=== PATIENT | female | born 1950 | race Caucasian/White ===

== ENCOUNTER 2016-12-08 14:19 | Outpatient (CLI) | payer MEDICARE, BC ==
--- NOTE | 2016-12-08 16:23 | XRAY Report ---
THREE VIEW RIGHT SHOULDER: 12/08/2016 CLINICAL INDICATION: Right shoulder pain. FINDINGS: AP, oblique, and scapular Y views of the right shoulder demonstrate degenerative changes o f the acromioclavicular and glenohumeral joints. There is no evidence of acute fracture or dislocatio n. Spinal fusion hardware is noted in the lower cervical spine. No radiopaque foreign body is seen in the soft tissues. IMPRESSION: OSTEOARTHRITIS. JOB #: [id number] EXT JOB #:[id number]
== END 2016-12-08 14:20 | disposition home or self-care (01) ==
LOC: DI.S 14:19
PROVIDERS: ATTEND Nurse Practitioner Family
DX: M19.011 Primary osteoarthritis, right shoulder (principal)

== ENCOUNTER 2017-03-17 18:20 | Outpatient (CLI) | payer MEDICARE, BC ==
--- NOTE | 2017-03-18 09:21 | XRAY Report ---
THREE-VIEW LEFT KNEE: 03/17/2017 CLINICAL INDICATION: Severe pain. FINDINGS: AP, lateral, sunrise views of the left knee demonstrate no evidence of fracture or disloca tion. The joint spaces are preserved. No effusion is present. No foreign body is seen in the soft tissues. IMPRESSION: NORMAL LEFT KNEE. JOB #: [id number] EXT JOB #:[id number]
== END 2017-03-17 18:21 | disposition home or self-care (01) ==
LOC: DI 18:20
PROVIDERS: ATTEND Nurse Practitioner Family
DX: M25.562 Pain in left knee (principal)

== ENCOUNTER 2018-06-18 09:51 | Outpatient (CLI) | payer MEDICARE, BC ==
--- NOTE | 2018-06-18 11:39 | XRAY Report ---
Reason: UNSPECIFIED INFLAMMATORY SPONDYLOPATHY,CERVICAL RE Procedure Date: 06/18/2018 Accession Number: [id number] / [id number] Procedure: XR - Cervical Spine Complete CPT Code: FULL RESULT: EXAM: CERVICAL SPINE RADIOGRAPHY EXAM DATE: 06/18/2018 10:14 AM. CLINICAL HISTORY: UNSPECIFIED INFLAMMATORY SPONDYLOPATHY, neck pain. History of surgery. COMPARISONS: None. TECHNIQUE: 5 views. FINDINGS: Alignment: Minimal retrolisthesis C4 with respect to C5. Bones: The cervical vertebral bodies and posterior elements are well-seen from the skull base through C7-T1. No fractures or bone lesions. Disks: Advanced degenerative disk space narrowing C4-C5. Status post anterior interbody solid-appearing C5-C6 and C6-C7 with plate and screw stabilization. Facets: Mild degenerative disease. Neural Foramina: The neural foramina views are suboptimal but encroachment at C5-C6 and C6-C7 bilaterally is suspected. Soft Tissues: No prevertebral soft tissue swelling. IMPRESSION: Status post solid-appearing C5-C7 fusion advanced C4-C5 degenerative change. RADIA
== END 2018-06-18 09:52 | disposition home or self-care (01) ==
LOC: DI 09:51
PROVIDERS: ATTEND Internal Medicine
DX: M50.321 Other cervical disc degeneration at C4-C5 level (principal); M47.9 Spondylosis, unspecified; Z98.1 Arthrodesis status
CPT/HCPCS: 72050

== ENCOUNTER 2018-09-16 10:57 | Outpatient (CLI) | payer MEDICARE, BC ==
[2018-09-16 11:12] LABS: BASOPHILS % (AUTO) 0.4 %; EOSINOPHILS # (AUTO) 0.1 10^3/uL (0.0-0.7); EOSINOPHILS % (AUTO) 0.9 %; HGB - HEMOGLOBIN 13.1 g/dL (12.0-16.0); LYMPHOCYTES # (AUTO) 0.8 10^3/uL (1.5-3.5); LYMPHOCYTES % (AUTO) 10.9 %; MEAN CORPUSCULAR HEMOGLOBIN 27.4 pg (27.0-31.0); MEAN CORPUSCULAR VOLUME 83.1 fL (81.0-99.0); MEAN PLATELET VOLUME 7.4 fL (7.9-10.8); MONOCYTES # (AUTO) 0.8 10^3/uL (0.0-1.0); MONOCYTES % (AUTO) 10.1 %; NEUTROPHILS # (AUTO) 5.9 10^3/uL (1.5-6.6); NEUTROPHILS % (AUTO) 77.7 %; PLT - PLATELET COUNT 236 10^3/uL (130-450); RED BLOOD COUNT 4.76 10^6/uL (4.20-5.40); RED CELL DISTRIBUTION WIDTH 13.5 % (12.0-15.0); WHITE BLOOD COUNT 7.6 x10^3/uL (4.8-10.8)
[2018-09-16 11:24] LABS: ALBUMIN 4.3 g/dL (3.2-5.5); ALBUMIN/GLOBULIN RATIO 1.6 (1.0-2.2); BILIRUBIN,TOTAL 0.7 mg/dL (0.2-1.0); CALCIUM 9.4 mg/dL (8.5-10.3)
== END 2018-09-16 10:58 | disposition home or self-care (01) ==
LOC: LAB 10:57
PROVIDERS: ATTEND Orthopaedic Surgery
DX: Z01.810 Encounter for preprocedural cardiovascular examination (principal); Z01.812 Encounter for preprocedural laboratory examination
CPT/HCPCS: 36415; 80053; 85025

== ENCOUNTER 2019-06-23 14:15 | Emergency (ER) | payer MEDICARE, BC ==
[2019-06-23 15:28] LABS: BASOPHILS # (AUTO) 0.1 10^3/uL (0.0-0.1); BASOPHILS % (AUTO) 0.4 %; EOSINOPHILS % (AUTO) 0.2 %; HGB - HEMOGLOBIN 11.5 g/dL (12.0-16.0); LYMPHOCYTES # (AUTO) 0.3 10^3/uL (1.5-3.5); LYMPHOCYTES % (AUTO) 2.2 %; MEAN CORPUSCULAR HGB CONC 33.1 g/dL (32.0-36.0); MEAN CORPUSCULAR VOLUME 84.6 fL (81.0-99.0); MEAN PLATELET VOLUME 9.4 fL (7.9-10.8); MONOCYTES # (AUTO) 0.6 10^3/uL (0.0-1.0); MONOCYTES % (AUTO) 4.6 %; NEUTROPHILS # (AUTO) 11.2 10^3/uL (1.5-6.6); PLT - PLATELET COUNT 197 10^3/uL (130-450); RED CELL DISTRIBUTION WIDTH 12.1 % (12.0-15.0); WHITE BLOOD COUNT 12.2 x10^3/uL (4.8-10.8)
[2019-06-23 15:41] LABS: ALBUMIN 4.1 g/dL (3.2-5.5); ALBUMIN/GLOBULIN RATIO 1.4 (1.0-2.2); BILIRUBIN,TOTAL 1.1 mg/dL (0.2-1.0); CALCIUM 9.3 mg/dL (8.5-10.3); CREATININE 0.9 mg/dL (0.4-1.0); TOTAL PROTEIN 7.1 g/dL (6.7-8.2)
[2019-06-23] MEDS ORDERED: ACETAMINOPHEN 325 MG TABLET PO STA (16:01)
--- NOTE | 2019-06-23 16:05 | ED Physician Documentation ---
History of Present Illness - Stated complaint Stated Complaint: RADHA - Chief complaint Chief Complaint: General - History obtained from History obtained from: Patient, Family - History of Present Illness Timing: How many days ago (2) - Additonal information Additional information: Patient comes emergency department complaining of not feeling well for the last couple of days. She states that 4 days ago, she got a shingles vaccine, and that the next day, she began to feel "off". She states that the day after that, she had very severe body aches and spent the entire day laying down. The body aches continued yesterday and today, the patient states she began to feel quite chilled. She states she was shaking so hard that she could not stand up and a friend had to help her stand. She states that she did not measure her temperature, so she is not sure she had a fever. She denies any dysuria. No cough. No sore throat or rhinorrhea. No abdominal pain, chest pain, nausea, vomiting, diarrhea, or constipation. Patient states that she is fairly healthy, though she does take medication for hypertension, depression, and hyperlipidemia. She denies any specific sick contacts. No other complaints at this time. She states she did begin to feel better after she got in the car and covered up with some warm clothing.Patient denies feeling dizzy or lightheaded. She denies any focal weakness in her arms or legs. Review of Systems Ten Systems: 10 systems reviewed and negative Constitutional: reports: Chills, Myalgias Eyes: reports: Reviewed and negative Ears: reports: Reviewed and negative Nose: reports: Reviewed and negative Throat: reports: Reviewed and negative Cardiac: reports: Reviewed and negative Respiratory: reports: Reviewed and negative GI: reports: Reviewed and negative : reports: Reviewed and negative Skin: reports: Reviewed and negative Musculoskeletal: reports: Reviewed and negative Neurologic: reports: Reviewed and negative Psychiatric: reports: Reviewed and negative Endocrine: reports: Reviewed and negative Immunocompromised: reports: Reviewed and negative PD PAST MEDICAL HISTORY - Past Medical History Cardiovascular: Hypertension, High cholesterol, Arrhythmia Respiratory: Asthma Endocrine/Autoimmune: None GI: None, Other : None HEENT: None Psych: Depression Musculoskeletal: Osteoarthritis Derm: None - Past Surgical History Past Surgical History: Yes General: Cholecystectomy, Colonoscopy Ortho: Carpal Tunnel surgery, Spine surgery /REGISTERED ART THERAPIST: Tubal ligation, Other - Present Medications Home Medications: Ambulatory Orders Medication Instructions Recorded Confirmed Aspirin [Aspir 81] 81 mg PO DAILY 08/17/13 11/24/13 Bupropion HCl [Wellbutrin Xl] 300 mg PO DAILY 08/17/13 11/24/13 Multivitamin [Daily Gi] 1 each PO DAILY 08/17/13 11/24/13 Simvastatin 20 mg PO DAILY 08/17/13 11/24/13 hydroCHLOROthiazide [Hydrodiuril] 25 mg PO DAILY 08/17/13 11/24/13 traZODone [Desyrel] 100 mg PO HS 08/17/13 11/24/13 Hydrocodone/Acetaminophen 1 each PO DAILY PRN 11/24/13 11/24/13 [Hydrocodone-APAP 5-325] Losartan [Cozaar] 50 mg PO DAILY 11/24/13 11/24/13 predniSONE [Deltasone] 20 mg PO [id number] #21 tab 11/27/14 Ciprofloxacin HCl [Cipro] 500 mg PO BID #14 tablet 06/23/19 - Allergies Allergies/Adverse Reactions: Allergies Allergy/AdvReac Type Severity Reaction Status Date / Time Sulfa (Sulfonamide Allergy Unknown Verified 06/23/19 14:26 Antibiotics) - Social History Does the pt smoke?: No Smoking Status: Former smoker Does the pt drink ETOH?: Yes Does the pt have substance abuse?: No - Immunizations Immunizations are current?: No Immunizations: TDAP >10years/unknown - POLST Patient has POLST: No PD ED PE NORMAL - Vitals Vital signs reviewed: Yes - General General: Alert and oriented X 3, No acute distress - HEENT HEENT: PERRL - Neck Neck: Supple, no meningeal sign - Cardiac Cardiac: RRR, No murmur - Respiratory Respiratory: Clear bilaterally - Abdomen Abdomen: Soft, Non tender, Non distended - Derm Derm: Warm and dry - Extremities Extremities: No deformity - Neuro Neuro: Alert and oriented X 3 - Psych Psych: Normal mood, Normal affect Results - Vitals Vitals: Vital Signs - 24 hr 06/23/19 06/23/19 06/23/19 14:21 16:39 17:32 Temperature 36.9 C 37.7 C H Heart Rate 90 73 81 Respiratory 20 20 16 Rate Blood Pressure 132/67 H 143/69 H 121/57 L O2 Saturation 100 98 96 06/23/19 17:34 Temperature 37.5 C Heart Rate Respiratory Rate Blood Pressure O2 Saturation Oxygen O2 Source Room air - Labs Labs: Laboratory Tests 06/23/19 06/23/19 06/23/19 15:19 15:19 15:19 WBC 12.2 H RBC 4.10 L Hgb 11.5 L Hct 34.7 L MCV 84.6 MCH 28.0 MCHC 33.1 RDW 12.1 Plt Count 197 MPV 9.4 Neut # (Auto) 11.2 H Lymph # (Auto) 0.3 L [place] # (Auto) 0.6 Eos # (Auto) 0.0 Baso # (Auto) 0.1 Absolute Nucleated RBC 0.00 Nucleated RBC % 0.0 Sodium 133 L Potassium 3.3 L Chloride 97 L Carbon Dioxide 26 Anion Gap 10.0 BUN 25 H Creatinine 0.9 Estimated GFR (MDRD) 62 L Glucose 123 H Lactic Acid 1.2 Calcium 9.3 Total Bilirubin 1.1 H AST 18 ALT 18 Alkaline Phosphatase 58 Troponin I High Sens Total Protein 7.1 Albumin 4.1 Globulin 3.0 Albumin/Globulin Ratio 1.4 Lipase 22 Urine Color Urine Clarity Urine pH Ur Specific Waite Urine Protein Urine Glucose (UA) Urine Ketones Urine Occult Blood Urine Nitrite Urine Bilirubin Urine Urobilinogen Ur Leukocyte Esterase Urine RBC Urine WBC Ur Squamous Epith Cells Amorphous Sediment Urine Bacteria Urine Culture Comments Influenza A (Rapid) Influenza B (Rapid) 06/23/19 06/23/19 06/23/19 15:19 15:55 15:55 WBC RBC Hgb Hct MCV MCH MCHC RDW Plt Count MPV Neut # (Auto) Lymph # (Auto) [place] # (Auto) Eos # (Auto) Baso # (Auto) Absolute Nucleated RBC Nucleated RBC % Sodium Potassium Chloride Carbon Dioxide Anion Gap BUN Creatinine Estimated GFR (MDRD) Glucose Lactic Acid Calcium Total Bilirubin AST ALT Alkaline Phosphatase Troponin I High Sens 7.4 Total Protein Albumin Globulin Albumin/Globulin Ratio Lipase Urine Color DARK YELLOW Urine Clarity CLEAR Urine pH 6.0 Ur Specific [place] 1.020 Urine Protein TRACE Urine Glucose (UA) NEGATIVE Urine Ketones TRACE Urine Occult Blood NEGATIVE Urine Nitrite POSITIVE H Urine Bilirubin NEGATIVE Urine Urobilinogen 0.2 (NORMAL) Ur Leukocyte Esterase SMALL H Urine RBC 0-5 Urine WBC >25 H Ur Squamous Epith Cells FEW Squamous Amorphous Sediment Few Urine Bacteria Many H Urine Culture Comments INDICATED Influenza A (Rapid) Negative Influenza B (Rapid) Negative - Rads (name of study) Chest x-ray Radiology: Discussed with rads, See rad report (Mild left upper lobe bronchial thickening and patchy left basilar opacity findings which may represent early multifocal consolidation. ) PD MEDICAL DECISION MAKING - ED course Complexity details: reviewed old records, reviewed results, re-evaluated patient, considered differential, d/w patient, d/w family ED course: Patient was worked up with labs, including troponin, chest x-ray, urinalysis, and influenza swab, and was treated with a liter of 0.9 normal saline and with Tylenol.Work-up did reveal a urinary tract infection, which was not surprising, given the patient's constellation of symptoms. She was started on antibiotics in the emergency department and also given a prescription for antibiotics to take at home. Her chest x-ray showed some mild bronchial thickening which wasNonspecific, given the patient's lack of symptoms. However, the antibiotics upon which she has been started for her urinary tract infection will cover any potential respiratory bereket, as well. We have discussed home management of her symptoms as well as the usual indications for return. Departure - Departure Disposition: Home, Self Care Clinical Impression: UTI (urinary tract infection) Qualifiers: Urinary tract infection type: acute cystitis Hematuria presence: without hematuria Qualified Code(s): N30.00 - Acute cystitis without hematuria Condition: Good Instructions: ED UTI Cystitis Female Prescriptions: Ciprofloxacin HCl [Cipro] 500 mg PO BID #14 tablet Comments: Your labs look good overall. Your urinalysis is positive for infection, which is not surprising, given your symptoms.You have been started on antibiotics in the emergency department and will need to continue your antibiotics for the rest of the week. Discharge Date/Time: 06/23/19 17:59
[2019-06-23 16:18] LABS: BILIRUBIN,URINE NEGATIVE (NEGATIVE); GLUCOSE, URINE (UA) NEGATIVE (NEGATIVE); KETONES,URINE (UA) TRACE mg/dL (NEGATIVE); LEUKOCYTE ESTERASE, URINE SMALL (NEGATIVE); NITRITE,URINE POSITIVE (NEGATIVE); OCCULT BLOOD,URINE NEGATIVE (NEGATIVE); PROTEIN,URINE TRACE mg/dL (NEGATIVE); UROBILINOGEN,URINE 0.2 (NORMAL) E.U./dL (NORMAL)
[2019-06-23 16:27] LABS: AMORPHOUS SEDIMENT,UR Few /LPF; BACTERIA,URINE Many /HPF (None Seen); CLARITY,URINE CLEAR (CLEAR); RBC,URINE 0-5 /HPF (0-5); SQUAMOUS EPITHELIAL CELL,UR FEW Squamous (<= Few)
--- NOTE | 2019-06-23 16:47 | XRAY Report ---
Reason: chills, body aches, feeling unwell Procedure Date: 06/23/2019 Accession Number: [id number] / [id number] Procedure: XR - Chest 2 View X-Ray CPT Code: 23427 Final Report FULL RESULT: EXAM: CHEST RADIOGRAPHY EXAM DATE: 06/23/2019 04:27 PM. CLINICAL HISTORY: Chills, body aches, feeling unwell. COMPARISON: XR CHEST PA AND LAT 02/18/2010 10:13 AM. TECHNIQUE: 2 views. FINDINGS: Lungs/Pleura: Patchy left lower lobe opacity. Mild bronchial thickening left upper lobe. Linear basilar scar/atelectasis. No vascular congestion. No pneumothorax. Mediastinum: Heart size upper normal. Mediastinal contour stable. Other: Degenerative changes of the thoracic spine. Changes again seen from inferior cervical fusion. Degenerative changes of the thoracic spine. Status post cholecystectomy. IMPRESSION: 1. Mild left upper lobe bronchial thickening and patchy left basilar opacity findings which may represent early multifocal consolidation. RADIA
[2019-06-23] MEDS ORDERED: CIPROFLOXACIN 250 MG TABLET PO STA (17:11)
[2019-06-23 17:33] VITALS: BP 121/57
== END 2019-06-23 17:59 | disposition home or self-care (01) ==
LOC: ED 14:15
DX: N30.00 Acute cystitis without hematuria (principal); I10 Essential (primary) hypertension; Z87.891 Personal history of nicotine dependence
CPT/HCPCS: 36415; 71046; 80053; 81001; 83605; 83690; 84484; 85025; 87077; 87086; 87181; 87275; 87276; 99284; A9270

== ENCOUNTER 2022-05-06 13:36 | Outpatient (CLI) | payer MEDICARE, BC ==
--- NOTE | 2022-05-06 14:27 | XRAY Report ---
PROCEDURE: Chest 2 View X-Ray INDICATIONS: COUGH TECHNIQUE: 2 views of the chest were acquired. COMPARISON: Chest x-ray 02/18/2010 FINDINGS: Surgical changes and devices: Cervical fixation plates are noted. Lungs and pleura: No pleural effusions or pneumothorax. Lungs are clear. Mediastinum: Mediastinal contours are normal. Heart size is normal. Bones and chest wall: No suspicious bony abnormalities. Soft tissues appear unremarkable. IMPRESSION: No acute pulmonary process. Reviewed by: Giselle Gómez MD on 05/06/2022 2:26 PM PST Approved by: Giselle Gómez MD on 05/06/2022 2:26 PM [facility] Station ID: [id number]
== END 2022-05-06 13:37 | disposition home or self-care (01) ==
LOC: DI.S 13:36
PROVIDERS: ATTEND Nurse Practitioner Family
DX: R05.9 Cough, unspecified (principal)

== ENCOUNTER 2023-09-01 11:27 | Outpatient (CLI) | payer MEDICARE, BC ==
--- NOTE | 2023-09-02 08:25 | XRAY Report ---
PROCEDURE: Lumbar Spine 2-3V INDICATIONS: PAIN IN THORACIC SPINE TECHNIQUE: 3 views of the lumbar spine were acquired. COMPARISON: None. FINDINGS: Bones: 5 [id number]-kwt-[id number] vertebrae are present. There is normal bony alignment. No vertebral body compression fractures. No suspicious bony lesions. Multilevel degenerative disc disease, moderate a t L2-L3, mild at other levels. Moderate facet arthropathy at L3-L4, L5 L5 and L5-S1. Soft tissues: Overlying bowel gas pattern is normal. Vascular calcifications consistent with atheros clerosis. IMPRESSION: 1. Degenerative disc and facet disease as described. Reviewed by: Marciano Hernandez MD on 09/02/2023 8:23 AM PDT Approved by: Marciano Hernandez MD on 09/02/2023 8:23 AM PDT Station ID: [id number]
== END 2023-09-01 11:28 | disposition home or self-care (01) ==
LOC: DI.S 11:27
PROVIDERS: ATTEND Registered Nurse
DX: M47.816 Spondylosis without myelopathy or radiculopathy, lumbar region (principal); M47.817 Spondylosis without myelopathy or radiculopathy, lumbosacral region; M51.36 Other intervertebral disc degeneration, lumbar region; M51.37 Other intervertebral disc degeneration, lumbosacral region

== ENCOUNTER 2023-12-18 10:38 | Outpatient (CLI) | payer MEDICARE, BC ==
--- NOTE | 2023-12-20 15:12 | DEXA Report ---
PROCEDURE: Dexa Spine and/or Hip INDICATIONS: POST MENOPAUSAL TECHNIQUE: Dual energy x-ray absorptiometry (DXA) was performed on a Celect System. Regions measur ed are the AP Spine, femoral neck, and if needed forearm. COMPARISON: None FINDINGS: Lumbar Spine: Bone Mineral Density: 1.385 g/cm/cm,T score: 1.7. Left Femoral Neck: Bone Mineral Density: 0.908 g/cm/cm, T score: -0.9. Left Hip: Bone Mineral Density: 0.972 g/cm/cm,T score: -0.3. FRAX risk factors: None given. (T score greater or equal to -1.0: NORMAL) (T score from -1.1 to -2.4: OSTEOPENIA) (T score less than or equal to -2.5 to: OSTEOPOROSIS) Impression: By WHO criteria, this patient has normal bone density. Patients with diagnosis of osteoporosis or osteopenia should have regular bone mineral density assess ment. For those eligible for Medicare, routine testing is allowed once every 2 years. Testing frequ ency can be increased for patients who have rapidly progressing disease or for those who are receivin g medical therapy to restore bone mass. Reviewed by: Dameon Trent MD on 12/20/2023 3:10 PM PDT Approved by: Dameon Trent MD on 12/20/2023 3:10 PM PDT Station ID: [id number]
== END 2023-12-18 10:39 | disposition home or self-care (01) ==
LOC: DI 10:38
PROVIDERS: ATTEND Registered Nurse
DX: Z78.0 Asymptomatic menopausal state (principal)

== ENCOUNTER 2023-12-18 10:38 | Outpatient (CLI) | payer MEDICARE, BC ==
--- NOTE | 2023-12-19 11:26 | CT Report ---
PROCEDURE: Lung Cancer Screen INDICATIONS: FORMER SMOKER TECHNIQUE: A CT scan of the chest was performed. Intravenous contrast media was not administered. Images were re corded and evaluated at appropriate window settings. Reformats: axial MIP of the chest, coronal and s agittal. For radiation dose reduction, the following was used: automated exposure control, adjustment of mA and/or kV according to patient size. COMPARISON: Correlation is made with overlapping portions of CT, 03/23/2015 FINDINGS: Image quality: Excellent. Prior cancer history: None given. Lungs and pleura: Within the right upper lobe, there is a 3 to 4 mm nodule seen, as on series 3 image 49. No pleural effusions. No pneumothorax. Mediastinum: Heart size is normal. No pericardial effusion. No large vessel abnormality. No mediastin al adenopathy by size criteria. Chest wall and lower neck: Thyroid is unremarkable. No axillary or supraclavicular adenopathy by size . Bones: No aggressive osseous abnormality. Lower cervical spine fixation hardware can be seen. Mild pe ctus excavatum deformity can be seen. Age-appropriate degenerative changes are seen. There is accent uated thoracic kyphosis. Upper Abdomen: Cholecystectomy clips are seen. IMPRESSION: There is a 3 to 4 mm right upper lobe pulmonary nodule seen. Lung RAD: 2 - Benign. Recommendation: Recommend annual low-dose CT chest screening examinations, as long as the patient ashutosh ts the published screening criteria. Additional findings: Lower cervical spine fixation hardware Mild pectus excavatum deformity Cholecystectomy Reviewed by: Maicol Sahu MD on 12/19/2023 10:24 AM [facility] Approved by: Maicol Sahu MD on 12/19/2023 10:24 AM [facility] Station ID: [id number]
== END 2023-12-18 10:39 | disposition home or self-care (01) ==
LOC: DI 10:38
PROVIDERS: ATTEND Registered Nurse
DX: Z12.2 Encounter for screening for malignant neoplasm of respiratory organs (principal); R91.1 Solitary pulmonary nodule; Z87.891 Personal history of nicotine dependence; Z78.0 Asymptomatic menopausal state

== ENCOUNTER 2023-12-24 16:00 | Outpatient (CLI) | payer MEDICARE, OTHER ==
--- NOTE | 2023-12-25 09:41 | Ultrasound Report ---
PROCEDURE: Pelvic w/Transvaginal INDICATIONS: POST MENOPAUSAL BLEEDING TECHNIQUE: Real-time scanning was performed of the pelvic organs, with image documentation. Additional endovagi nal scanning was necessary due to incomplete visualization of the adnexal and endometrial structures by transabdominal scanning. COMPARISON: None. FINDINGS: Uterus: Uterus is anteverted and normal in size at 4.8 x 3.1 x 4.3 cm. The myometrium is homogeneou s. The endometrium measures 18 mm in combined thickness. Cystic change throughout the endometrium. Ovaries: The right ovary measures 1.5 x 0.9 x 1.3 cm, with a calculated ovarian volume of 0.9 cc. T he left ovary measures 1.6 x 0.9 x 1.5 cm, with a calculated ovarian volume of 1.1 cc. The ovaries h ave a normal sonographic appearance. Less than 12 follicles can be seen in each ovary. No adnexal m asses are seen. No cystic lesions measuring greater than 3 cm. Other: No pathologic free abdominal or pelvic fluid. IMPRESSION: Hypertrophy of the endometrium, with cystic change throughout the endometrium. Findings are concernin g for hypertrophy or malignancy. Tissue sampling is recommended. Reviewed by: Eligio Hackett MD on 12/25/2023 9:40 AM PDT Approved by: Eligio Hackett MD on 12/25/2023 9:40 AM PDT Station ID: [id number]
== END 2023-12-24 16:01 | disposition home or self-care (01) ==
LOC: DI 16:00
PROVIDERS: ATTEND Nurse Practitioner
DX: N85.00 Endometrial hyperplasia, unspecified (principal); N85.8 Other specified noninflammatory disorders of uterus; N95.0 Postmenopausal bleeding

== ENCOUNTER 2023-12-29 07:47 | Day surgery (SDC) | payer MEDICARE, OTHER ==
[~2023-12-29 07:47] MED LIST: BUPIVACAINE 0.25% PF 10 ML VIAL ONE
[2023-12-29] MEDS: LACTATED RINGERS 1,000 ML IV ONE ×2 (07:53→09:23)
[2023-12-29 08:26] LABS: BASOPHILS % (AUTO) 0.7 %; EOSINOPHILS # (AUTO) 0.2 10^3/uL (0.0-0.7); EOSINOPHILS % (AUTO) 3.1 %; HCT - HEMATOCRIT 39.7 % (37.0-47.0); HGB - HEMOGLOBIN 12.8 g/dL (12.0-16.0); LYMPHOCYTES # (AUTO) 0.8 10^3/uL (1.5-3.5); MEAN CORPUSCULAR HEMOGLOBIN 28.1 pg (27.0-31.0); MEAN CORPUSCULAR HGB CONC 32.2 g/dL (32.0-36.0); MEAN CORPUSCULAR VOLUME 87.1 fL (81.0-99.0); MEAN PLATELET VOLUME 9.7 fL (7.9-10.8); MONOCYTES # (AUTO) 0.4 10^3/uL (0.0-1.0); MONOCYTES % (AUTO) 7.8 %; NEUTROPHILS % (AUTO) 73.2 %; PLT - PLATELET COUNT 219 10^3/uL (130-450); RED BLOOD COUNT 4.56 10^6/uL (4.20-5.40); RED CELL DISTRIBUTION WIDTH 12.1 % (12.0-15.0); WHITE BLOOD COUNT 5.4 x10^3/uL (4.8-10.8)
--- NOTE | 2023-12-29 08:29 | ANESTHESIA ---
Pre-Anesthesia VS, & Labs - Diagnosis cervical polyp, post menopausal bleeding - Procedure hysteroscopy, D&C, cervical polypectomy Vital Signs: Temp Pulse Resp BP Pulse Ox O2 Flow Rate 36.1 C L 54 L 14 141/64 H 98 12/29/23 08:12 12/29/23 08:12 12/29/23 08:12 12/29/23 08:12 12/29/23 08:12 Height: 5 ft 2 in Weight (kg): 80 kg Body Mass Index: 32.2 BMI Classification: Obese - NPO >8 hours - Is Patient ?: No - Lab Results Lab results reviewed: Yes Home Medications and Allergies Home Medications: Ambulatory Orders Amitriptyline [Elavil] 5 mg PO HS 12/21/23 Amlodipine Besylate [Norvasc] 10 mg PO DAILY 12/21/23 Multivitamin [Daily Gi] 1 each PO DAILY 08/17/13 Simvastatin 20 mg PO DAILY 08/17/13 buPROPion HCL [Wellbutrin Xl] 300 mg PO DAILY 08/17/13 hydroCHLOROthiazide [Hydrodiuril] 25 mg PO DAILY 08/17/13 traZODone [Desyrel] 100 mg PO HS 08/17/13 Losartan [Cozaar] 100 mg PO DAILY 11/24/13 Amitriptyline [Elavil] 5 mg PO HS 12/21/23 Amlodipine Besylate [Norvasc] 10 mg PO DAILY 12/21/23 Allergies/Adverse Reactions: Allergies Allergy/AdvReac Type Severity Reaction Status Date / Time Sulfa (Sulfonamide Allergy Unknown Verified 12/29/23 07:59 Antibiotics) Anes History & Medical History - Anesthetic History Anesthesia Complications: reports: No previous complications Family history of Anesthesia Complications: Denies Family history of Malignant Hyperthermia: Denies - Medical History Cardiovascular: reports: Hypertension, High cholesterol, Arrhythmia Pulmonary: reports: Asthma Gastrointestinal: reports: None, Other Urinary: reports: None Musculoskeletal: reports: Osteoarthritis Endocrine/Autoimmune: reports: None Skin: reports: None Smoking Status: Former smoker Psychosocial: reports: Alcohol, Cannabis, Cocaine (2 months ago) History of Cancer?: No - Surgical History General: reports: Cholecystectomy, Colonoscopy Gynecologic: reports: Tubal ligation, Other Orthopedic: reports: Carpal Tunnel surgery, Spine surgery Exam General: Alert, Oriented x3, Cooperative Dental: WNL Mouth Openin Fingerbreadth Neck Mobility: Normal Mallampati classification: II Thyromental Distance: 4-6 cm Respiratory: Lungs clear, Normal breath sounds, No respiratory distress Cardiovascular: Regular rate Neurological: Normal speech Mental/Cognitive Status: Alert/Oriented X3, Normal for patient Cognitive Status: Within normal limits Plan Anesthesia Type: General Consent for Procedure(s) Verified and Reviewed: Yes Code Status: Attempt Resuscitation ASA classification: 2-Mild systemic disease Is this case an emergency?: No
[2023-12-29] MEDS ORDERED: NALOXONE 0.4 MG/ML VIAL IVP PRN (08:31)
[2023-12-29] MEDS ORDERED: ePHEDrine 50 MG/ML VIAL IVP PRN (08:31)
[2023-12-29] MEDS ORDERED: ATROPINE ABBOJECT 1 MG/10 ML SYRINGE IVP PRN (08:31)
[2023-12-29] MEDS ORDERED: ONDANSETRON 4 MG/2 ML VIAL IVP PRN (08:31)
[2023-12-29] MEDS ORDERED: MORPHINE 2 MG/ML CARPUJECT IVP PRN (08:31)
[2023-12-29] MEDS ORDERED: METOCLOPRAMIDE 10 MG/2 ML VIAL IVP PRN (08:31)
[2023-12-29] MEDS ORDERED: MIDAZOLAM 2 MG/2 ML VIAL ONE (08:32)
[2023-12-29] MEDS ORDERED: LIDOCAINE-PF 2% 10 ML AMP SUBQ ONE (08:33)
[2023-12-29] MEDS ORDERED: PROPOFOL 200 MG/20 ML VIAL IVP ONE (08:33)
[2023-12-29] MEDS ORDERED: ONDANSETRON 4 MG/2 ML VIAL ONE (08:49)
[2023-12-29] MEDS ORDERED: DEXAMETHASONE 4 MG/ML VIAL ONE (08:49)
[2023-12-29] MEDS ORDERED: GLYCOPYRROLATE 1 MG/5 ML VIAL ONE (08:50)
[2023-12-29] MEDS ORDERED: LACTATED RINGERS 1,000 ML IV SCH (09:00)
[2023-12-29] MEDS: BUPIVACAINE 0.25% PF 10 ML VIAL SUBQ ONE ×2 (09:08)
--- NOTE | 2023-12-29 09:25 | OPERATIVE REPORT ---
Operative Report - General Planned Procedure: Hysteroscopy, D&C, cervical polypectomy Pre-Op Diagnosis: Postmenopausal bleeding, cervical polyp Procedure Performed: Hysteroscopy, D&C, endometrial polypectomy Post Op Diagnosis: Postmenopausal bleeding, endometrial polyp - Procedure Note Primary Surgeon: eMndel Evans MD Anesthesia Provider: Andrés Reina CRNA Pathology: 1. Endometrial polyp 2. Endometrial curettings IV Fluids (mL): 300 Estimated Blood Loss (mL): 10 Urine Output (mL): 0 (Emptied prior to procedure) Findings: Polyp prolapsing through the cervical os, upon hysteroscopy, polyp taking up most of the endometrial canal. After removal of the polyp, another small polypoid lesion at the fundus. Complications: None - Other Other Information/Narrative: Patient was taken to the procedure room and placed in dorsal lithotomy position. Hibiclens was used to clean the operative area. Time out was taken. Conesus speculum was palced in the vagina and the cervix was visualized. A polyp was seen prolapsing through the cervical os and was grasped with a ring forcep, using gentle traction and rotating, part of the polyp removed, but deep in the cervix, we could see additional polyp tissue. The anterior lip the cervix was grasped with a single-tooth tenaculum. The cervix was non-stenotic and allowed the easy passage of dilators. Hysteroscope was then used to hydrodilate using normal saline distention media. Hysteroscope was advanced without difficulty using hydrodistention. Cervical canal was noted to have no lesions. Upon entry into the internal cervical os there was noted to be a large polyp taken out most of the endometrium. She is in the MyoSure device, the polyp was resected and appeared to be coming from the left uterine wall. This was a large polyp and took some time to resect. There was additional polypoid lesion at the fundus which was also resected. At that time, the uterus could be more clearly visualized and bilateral tubal ostia were noted. Hysteroscope was then removed. A sharp curette was then performed sampling all areas of the uterus. Tenaculum was then removed from the cervix noted to be hemostatic. All instruments removed from the vagina Fluid deficit 55 mL.
[2023-12-29] MEDS ORDERED: fentaNYL 100 MCG/2 ML VIAL ONE ×2 (09:34→10:00)
[2023-12-29] MEDS: fentaNYL 100 MCG/2 ML VIAL IVP PRN (09:36)
[2023-12-29] MEDS ORDERED: HYDROcod/ACETAM 5/325 MG TABLET ONE (09:54)
[2023-12-29] MEDS: HYDROcod/ACETAM 10 MG/325 MG TABLET PO PRN (09:55)
[2023-12-29] MEDS ORDERED: HYDROmorphone 1 MG/ML CARPUJECT ONE (10:09)
[2023-12-29] MEDS: HYDROmorphone 0.5 MG/0.5 ML SYRINGE IVP PRN (10:11)
--- NOTE | 2023-12-29 10:11 | ANESTHESIA POST OP EVALUATION ---
Anesthesia Post Eval - Post Anesthesia Eval Vitals: Last Vital Signs Temp 36.1 C L 12/29/23 09:40 Pulse 66 12/29/23 10:00 Resp 12 12/29/23 10:00 BP 146/69 H 12/29/23 10:00 Pulse Ox 100 12/29/23 10:00 O2 Flow Rate CV Function Including HR & BP: Stable Pain Control: Satisfactory Nausea & Vomiting: Negative Mental Status: Baseline Respiratory Status: Airway Patent Hydration Status: Satisfactory Anesthesia Complications: None
[2023-12-29 10:32] VITALS: O2SAT 100
[2023-12-29 10:42] VITALS: BP 132/80
== END 2023-12-29 07:48 | disposition home or self-care (01) ==
LOC: SDS 07:47
PROVIDERS: ATTEND Obstetrics & Gynecology
PROC: 0UB98ZZ Excision of Uterus, Via Natural or Artificial Opening Endoscopic (ICD-10-PCS; 2023-12-29)
PROC: 0UDB8ZX Extraction of Endometrium, Via Natural or Artificial Opening Endoscopic, Diagnostic (ICD-10-PCS; principal; 2023-12-29 09:00)
DX: N95.0 Postmenopausal bleeding (principal); N84.0 Polyp of corpus uteri; I10 Essential (primary) hypertension; E66.9 Obesity, unspecified; Z68.32 Body mass index [BMI] 32.0-32.9, adult; Z87.891 Personal history of nicotine dependence
CPT/HCPCS: 36415; 58558; 85025; A9270; J1170; J7120; 86850; 86900; 86901